=== PATIENT | female | born 1935 | race Caucasian/White ===

== ENCOUNTER → 2016-09-19 | Outpatient (CLI) | payer MEDICARE, OTHER ==
[~2016-09-19] MED LIST: ATOR40TA PO; CALC-793 PO; CARV3.12 PO; CHOL200035 PO; CLOP75TA; FAMO-119 PO; GLUC1TAB29 PO; GRAP50CA5 PO; METO-352 PO; MULT1TAB5 PO; OMEG-12 PO; ONDA8TAB6 PO; PRAV20TA3 PO; TRAM50TA2 PO; [UNRECOGNIZED DRUG - CODE] PO
--- NOTE | 2016-09-22 18:50 | Diagnostic Imaging Report ---
Bilateral screening mammogram 2D views with tomosynthesis The current study was also evaluated with a Computer Aided Detection (CAD) system. INDICATION: Screening. No current complaints stated on the questionnaire. COMPARISON: 08/14/2015. FINDINGS: The breasts are composed of heterogeneously dense parenchyma which may decrease mammographic sensitivity. There are benign-appearing calcifications. Allowing for technique and positional differences, no suspicious change is seen. IMPRESSION: Dense breasts with no definite change. ACR BI-RADS Category 2: Benign findings. Result letter will be mailed to the patient. Note: At least 10% of breast cancer is not imaged by mammography. Dictated by: Dictated on workstation # [id number]
== END ==
LOC: RAD 14:56
PROVIDERS: ATTEND Nurse Practitioner Family
DX: Z12.31 Encounter for screening mammogram for malignant neoplasm of breast (principal)
CPT/HCPCS: 77067

== ENCOUNTER 2016-10-18 12:44 | Emergency (ER) | payer MEDICARE, OTHER ==
[~2016-10-18] VITALS: Ht 157.5 cm; Wt 62.1 kg
--- NOTE | 2016-10-18 13:37 | ED Fall/Injury ---
General Chief Complaint: Trauma-Non Activation Stated Complaint: FALL Nursing Triage Note: Patient here with fall early this am around 0030. She reports falling backwards over a clothes basket. Patient c/o bilat hip pain. Source: patient, family Exam Limitations: no limitations History of Present Illness Time seen by provider: 13:25 Initial Comments Here with report of falling backwards last night in a mechanical fall in which she may be tripped over a clothes basket. She landed on her bottom and then fell backwards. She states she may have glanced her head a little bit on the door but it did not hurt. She is not on anticoagulants. She did not get knocked out. Main complaint of pain to the low bottom area at the area of the ischium and over the area of the coccyx. Occurred: yesterday Severity: mild Injuries/Pain Location: pelvis Context: tripped Loss of Consciousness: no loss of consciousness Associated Symptoms (Fall): No Abdominal Pain, No Confusion, No Dizziness, No Muscle Spasms, No Neck Pain, No Shortness of Air Allergies and Home Medications Allergies Coded Allergies: quinine (Verified Allergy, Unknown, 08/19/07) Home Medications Cholecalciferol (Vitamin D3) 2,000 Unit Capsule, 2,000 UNIT PO DAILY, (Reported) Clopidogrel Bisulfate 75 Mg Tablet, (Reported) Famotidine 20 Mg Tablet, 20 MG PO BID, #30 Ref 1 Prescribed by: LJ QUEZADA on 10/07/15 1756 Metoprolol Succinate 50 Mg Tab.er.24h, Unknown Dose PO DAILY, (Reported) Multiv,Ca,Iron,Min/Fa/Phytoste 1 Each Tablet, 1 EACH PO PER PACKAGE INTRUC, ( Reported) [place]-3/Dha/Epa/Fish Oil 1 Each Capsule.dr, 1 EACH PO TID, (Reported) Pravastatin Sodium 20 Mg Tablet, Unknown Dose PO, (Reported) Ramipril 1.25 Mg Capsule, 1.25 MG PO, (Reported) Tramadol HCl 50 Mg Tablet, 50 MG PO Q6H PRN for PAIN, #20 Prescribed by: MAUDE REDDY on 01/04/16 1607 Constitutional: see HPI, No chills, No fever Respiratory: no symptoms reported, cough Cardiovascular: no symptoms reported Gastrointestinal: no symptoms reported Musculoskeletal: see HPI, joint swelling, muscle pain Past Gjlayjj-Klmlyc-Btfjqz Hx Patient Social History Alcohol Use: Denies Use Recreational Drug Use: No Smoking Status: Never a Smoker Recent Foreign Travel: No Contact w/Someone Who Travel: No Recent Infectious Disease Expo: No Recent Hopitalizations: No Surgeries HX Surgeries: Yes Surgeries: Adenoidectomy, CABG, Tonsillectomy Respiratory Hx Respiratory Disorders: No Cardiovascular Hx Cardiac Disorders: Yes Cardiac Disorders: Coronary Artery Disease, Hypertension Neurological Hx Neurological Disorders: No Reproductive System Hx Reproductive Disorders: No Genitourinary Hx Genitourinary Disorders: No Gastrointestinal Hx Gastrointestinal Disorders: No Musculoskeletal Hx Musculoskeletal Disorders: No Endocrine Hx Endocrine Disorders: No HEENT HX ENT Disorders: No Cancer Hx Cancer: No Psychosocial Hx Psychiatric Problems: No Integumentary HX Skin/Integumentary Disorder: No Blood Transfusions Hx Blood Disorders: No Adverse Reaction to a Blood Tr: No Reviewed Nursing Assessment Reviewed/Agree w Nursing PMH: Yes Family Medical History Significant Family History: No Pertinent Family Hx Physical Exam Vital Signs Vital Sign - Last 12Hours 10/18/16 12:58 Temp 98.2 Pulse 77 Resp 18 B/P (MAP) 178/80 Pulse Ox 98 O2 Delivery Room Air Capillary Refill : Less Than 3 Seconds General Appearance: WD/WN, no apparent distress Cardiovascular: regular rate, rhythm, no murmur Respiratory: lungs clear, normal breath sounds Extremities: normal range of motion, pelvis stable, other (tender at the area of the low pelvis centrally over the sacrum and coccyx area. Able to stand and walk without difficulty. Pain with transition from sitting to standing.) Progress/Results/Core Measures Results/Orders My Orders Orders - MAUDE REDDY MD Pelvis (10/18/16 13:24) Sacrum And Coccyx (10/18/16 13:24) Vital Signs/I&O Vital Sign - Last 12Hours 10/18/16 12:58 Temp 98.2 Pulse 77 Resp 18 B/P (MAP) 178/80 Pulse Ox 98 O2 Delivery Room Air Blood Pressure Mean: 112 Progress Note : Progress Note Seen and evaluated. X-ray of pelvis, sacrum and coccyx. Monitor patient. No acute fracture. Discharged home with return precautions. Patient verbalize understanding instructions and agreement with plan. Diagnostic Imaging Diagonstic Imaging: Xray Plain Films/CT/US/NM/MRI: pelvis Comments VIA [facility]. [place], [place] NAME: ALEC RUIZ [facility] REC#: [id number] PT STATUS: REG ER : 1935 PHYSICIAN: MAUDE REDDY MD ADMIT DATE: 10/18/16/ER Draft Date of Exam:10/18/16 PELVIS INDICATION: Fall, hip and pelvic pain. COMPARISON: 01/04/16. FINDINGS: Single view of the pelvis demonstrates chronic healed fracture of the inferior and superior pubic ramus on the left. No acute fracture is seen. Hips are intact. SI joints are normal. IMPRESSION: No acute fracture. Dictated on workstation # [id number] Dict: 10/18/16 1405 Trans: 10/18/16 1409 [id number] Interpreted by: ANNAMARIE MCDANIEL Electronically signed by: Niarosanne Imaging: Xray Plain Films/CT/US/NM/MRI: other (sacrum and coccyx) Comments [facility]IA [place], [place] [facility] [id number] PT STATUS: REG ER : 1935 PHYSICIAN: MAUDE REDDY MD ADMIT DATE: 10/18/16/ER Draft Date of Exam:10/18/16 SACRUM AND COCCYX INDICATION: Fall FINDINGS: 3 views of the sacrum and coccyx demonstrate healed inferior and superior pubic ramus fractures on the left. There is some anterolisthesis of L5 on S1 due to degenerative facet joints. There is no acute fracture or malalignment of the sacrum and coccyx. IMPRESSION: No acute fracture identified. Dictated on workstation # [id number] Dict: 10/18/16 1405 Trans: 10/18/16 1409 [facility] [id number] Interpreted by: ANNAMARIE MCDANIEL Electronically signed by: Departure Impression Impression: Primary Impression: Contusion of buttock Qualified Codes: S30.0XXA - Contusion of lower back and pelvis, initial encounter Disposition: 01 HOME, SELF-CARE Condition: Improved Departure-Patient Inst. Decision time for Depature: 14:19 Referrals: ZHAO FIGUEROA MD (PCP/Family) Primary Care Physician Patient Instructions: Contusion (DC) Add. Discharge Instructions: All discharge instructions reviewed with patient and/or family. Voiced understanding. Take medications as previously prescribed. You may take Tylenol as needed for pain control. He may use ice packs to affected area as needed. Follow-up with your Dr. in a few days for recheck as needed. Return for worse pain, swelling, weakness, problems walking or going to the bathroom or other concerns as needed. MAUDE REDDY MD Oct 18, 2016 13:37
--- NOTE | 2016-10-18 14:09 | Diagnostic Imaging Report ---
INDICATION: Fall, hip and pelvic pain. COMPARISON: 01/04/16. FINDINGS: Single view of the pelvis demonstrates chronic healed fracture of the inferior and superior pubic ramus on the left. No acute fracture is seen. Hips are intact. SI joints are normal. IMPRESSION: No acute fracture. Dictated by: Dictated on workstation # [id number]
--- NOTE | 2016-10-18 14:10 | Diagnostic Imaging Report ---
INDICATION: Fall FINDINGS: 3 views of the sacrum and coccyx demonstrate healed inferior and superior pubic ramus fractures on the left. There is some anterolisthesis of L5 on S1 due to degenerative facet joints. There is no acute fracture or malalignment of the sacrum and coccyx. IMPRESSION: No acute fracture identified. Dictated by: Dictated on workstation # [id number]
[2016-10-18 14:23] VITALS: BP 147/75
== END 2016-10-18 14:23 | disposition home or self-care (01) ==
LOC: EDUNIT# 12:44 → ER 12:45
DX: S30.0XXA Contusion of lower back and pelvis, initial encounter (principal); I25.10 Atherosclerotic heart disease of native coronary artery without angina pectoris; I10 Essential (primary) hypertension; Z90.89 Acquired absence of other organs; Z95.1 Presence of aortocoronary bypass graft; W18.30XA Fall on same level, unspecified, initial encounter
CPT/HCPCS: 72170; 72220; 99281

== ENCOUNTER → 2017-11-18 | Outpatient (CLI) | payer MEDICARE, OTHER ==
--- NOTE | 2017-11-18 18:43 | Diagnostic Imaging Report ---
INDICATION: Routine screening. COMPARISON: Comparison is made with prior mammogram from 09/19/2016 and 08/14/2015. TECHNIQUE: 2D and 3D bilateral screening mammography was performed with computer-aided detection (CAD) system. FINDINGS: Both breasts are heterogeneously dense, limiting the sensitivity of mammography. There are occasional benign calcifications bilaterally. No mass or malignant appearing microcalcifications are seen. The axillae are unremarkable. IMPRESSION: No mammographic features suspicious for malignancy are identified. ACR BI-RADS Category 2: Benign findings. Result letter will be mailed to the patient. Note: At least 10% of breast cancer is not imaged by mammography. Dictated by: Dictated on workstation # [id number]
== END ==
LOC: RAD 11:33
PROVIDERS: ATTEND Family Medicine
DX: Z12.31 Encounter for screening mammogram for malignant neoplasm of breast (principal)
CPT/HCPCS: 77067

== ENCOUNTER → 2018-09-02 | Outpatient (CLI) | payer MEDICARE, OTHER ==
--- NOTE | 2018-09-02 11:47 | Diagnostic Imaging Report ---
CLINICAL INDICATION: Patient states her lower back really started to hurt in the evening. Patient complained that her legs and knee were hurting. Patient has history of break in pelvic bone in 2013 from a fall. EXAM: X-ray of the lumbar spine, Two views. COMPARISON: X-ray of the lumbar spine dated 11/22/2008. FINDINGS: There is no acute lumbar spine fracture. There are small lumbar spine degenerative spurs seen which is not significantly changed in the interim. There is slight progression of facet arthropathy of the L4-5 and L5-S1 levels. Stable moderate loss of intervertebral disc height at the L5-S1 level. There is stable levorotoscoliosis of the lumbar spine with apex at the L3-L4 intervertebral level. Phleboliths are noted in the pelvis. Sacroiliac joints show no significant abnormality. There is interval bony thickening and sclerosis of the left hemipelvis which may be related to patient's history of fracture. IMPRESSION: 1: There is no acute lumbar spine fracture or dislocation. 2: There is slight progression of lumbar spine degenerative disease. 3: Stable levorotoscoliosis of the lumbar spine. Dictated by: Dictated on workstation # [id number]
== END ==
LOC: RAD 10:11
PROVIDERS: ATTEND Nurse Practitioner Family
DX: M41.86 Other forms of scoliosis, lumbar region (principal); Z87.81 Personal history of (healed) traumatic fracture
CPT/HCPCS: 72100

== ENCOUNTER 2018-09-16 23:28 | Emergency (ER) | payer MEDICARE, OTHER ==
[~2018-09-16] VITALS: Ht 157.5 cm; Wt 59.0 kg
[2018-09-16] MEDS ORDERED: ONDA4TAB10 (23:38)
[2018-09-16] MEDS ORDERED: lisINopril 10 MG (PRINIVIL) TABLET PO ONE (23:45)
[2018-09-16] MEDS ORDERED: ONDANSETRON 4 MG/2 ML (SDV) Z0FRAN IVP ONE (23:45)
[2018-09-16 23:59] LABS: BASOPHILS % (AUTO) 1 % (0-10); EOSINOPHILS # (AUTO) 0.1 10^3/uL (0.0-0.3); EOSINOPHILS % (AUTO) 2 % (0-10); HEMATOCRIT 36 % (35-52); HEMOGLOBIN 11.9 G/DL (11.5-16.0); LYMPHOCYTES # (AUTO) 1.7 X 10^3 (1.0-4.0); LYMPHOCYTES % (AUTO) 34 % (12-44); MEAN CORPUSCULAR HEMOGLOBIN 31 PG (25-34); MEAN CORPUSCULAR HGB CONC 33 G/DL (32-36); MEAN CORPUSCULAR VOLUME 92 FL (80-99); MEAN PLATELET VOLUME 10.3 FL (7.4-10.4); MONOCYTES # (AUTO) 0.7 X 10^3 (0.0-1.0); MONOCYTES % (AUTO) 15 % (0-12); NEUTROPHILS # (AUTO) 2.4 X 10^3 (1.8-7.8); NEUTROPHILS % (AUTO) 49 % (42-75); PLATELET COUNT 204 10^3/uL (130-400); RED CELL DISTRIBUTION WIDTH 12.5 % (10.0-14.5)
[2018-09-17 00:03] LABS: BILIRUBIN,URINE NEGATIVE (NEGATIVE); CLARITY,URINE CLEAR; COLOR,URINE YELLOW; GLUCOSE, URINE (UA) NEGATIVE (NEGATIVE); KETONES,URINE NEGATIVE (NEGATIVE); LEUKOCYTE ESTERASE ,URINE 2+ (NEGATIVE); NITRITE,URINE NEGATIVE (NEGATIVE); PH,URINE 7 (5-9); PROTEIN,URINE NEGATIVE (NEGATIVE); UROBILINOGEN,URINE NORMAL (NORMAL)
[2018-09-17 00:10] LABS: BACTERIA,URINE FEW /HPF
[2018-09-17 00:16] LABS: ALANINE AMINOTRANSFERASE 17 U/L (0-55); ALBUMIN 4.2 GM/DL (3.2-4.5); ALKALINE PHOSPHATASE 49 U/L (40-136); BILIRUBIN,TOTAL 0.3 MG/DL (0.1-1.0); BUN/CREATININE RATIO 15; CALCIUM 9.7 MG/DL (8.5-10.1); CARBON DIOXIDE 22 MMOL/L (21-32); CHLORIDE 102 MMOL/L (98-107); CREATININE SERUM 0.82 MG/DL (0.60-1.30); GFR ESTIMATED > 60; GLUCOSE 118 MG/DL (70-105); MAGNESIUM 2.4 MG/DL (1.8-2.4); POTASSIUM 3.6 MMOL/L (3.6-5.0); SODIUM 137 MMOL/L (135-145); TOTAL PROTEIN 7.2 GM/DL (6.4-8.2)
[2018-09-17] MEDS ORDERED: NS IV 500 ML 500 ML IV ONE (00:17)
--- NOTE | 2018-09-17 00:17 | ED Neurological Problem ---
General Chief Complaint: Dizziness/Syncope Stated Complaint: HYPERTENSION Nursing Triage Note: DIZZINESS, NEAR SYNCOPE, N/V, HTN. Nursing Sepsis Screen: No Definite Risk Source: patient, family, EMS Exam Limitations: no limitations History of Present Illness Date Seen by Provider: Sep 16, 2018 Time Seen by Provider: 23:28 Initial Comments Patient presents to ER by EMS with chief complaint for the past couple days sh mau's had some nausea and vomiting as well as dizziness which she describes as feeling the room spinning around her. Is worse with her bed. She has not brought it up to care doctor yet. She did attend physical therapy for back pain and they did some maneuvers holding her hips down and twisting her head from left to right and said that they did not think that it was caused by vertigo from her in her ear. She is not very clear on this point however. She has not tried meclizine. She did get some Zofran today from Dr. Figueroa's office by phone and tried that after the nausea pretty much resolved and has not come back. She has a history of CABG but no history of stroke. No loss of consciousness or syncope. She does not take a beta victoriano although she used to. She only takes Ramipril 5 mg for blood pressure. She says she has not taken in the last couple days because of the vomiting. She feels dehydrated. Allergies and Home Medications Allergies Coded Allergies: quinine (Verified Allergy, Unknown, 08/19/07) Home Medications Cholecalciferol (Vitamin D3) 2,000 Unit Capsule, 2,000 UNIT PO DAILY, (Reported) Multiv,Ca,Iron,Min/Fa/Phytoste 1 Each Tablet, 1 EACH PO PER PACKAGE INTRUC, (Reported) [place]-3/Dha/Epa/Fish Oil 1 Each Capsule.dr, 1 EACH PO TID, (Reported) Patient Home Medication List Home Medication List Reviewed: Yes Review of Systems Review of Systems Constitutional: No chills, No diaphoresis Eyes: Denies Blindness, Denies Blurred Vision, Denies Drainage Ears, Nose, Mouth, Throat: denies ear pain, denies ear discharge, denies nose pain, denies nose discharge Respiratory: No cough, No phlegm, No short of breath Cardiovascular: No chest pain, No edema Gastrointestinal: No abdominal pain, No nausea, No vomiting Genitourinary: No discharge, No dysuria : No Musculoskeletal: No back pain, No joint pain Past Tlqpzbf-Byrhds-Jxjsng Hx Patient Social History Alcohol Use: Rarely Uses Recreational Drug Use: No Smoking Status: Never a Smoker 2nd Hand Smoke Exposure: No Recent Foreign Travel: No Contact w/Someone Who Travel: No Recent Infectious Disease Expo: No Recent Hopitalizations: No Immunizations Up To Date Tetanus Booster (TDap): Unknown Seasonal Allergies Seasonal Allergies: No Past Medical History Surgeries: Yes (HEART CATH, CABG, CARPAL TUNNEL BILAT, TONSILLECTOMY, 4 NATURAL CHILDBIRTH) Adenoidectomy, CABG, Tonsillectomy Respiratory: No Cardiac: Yes Coronary Artery Disease, Hypertension Neurological: No : No Reproductive Disorders: No [employer] History: Menopausal Genitourinary: No Gastrointestinal: No Musculoskeletal: No Endocrine: No HEENT: No Cancer: No Psychosocial: No Integumentary: No Blood Disorders: No Adverse Reaction/Blood Tranf: No Family Medical History No Pertinent Family Hx Physical Exam Vital Signs Vital Signs - First Documented 09/16/18 23:28 Temp 98.9 Pulse 60 Resp 20 B/P (MAP) 192/86 (121) Pulse Ox 100 O2 Delivery Room Air Capillary Refill : Less Than 3 Seconds Height, Weight, BMI Height: 5'2" Weight: 130lbs. 0.0oz. 58.075010ie; 24.9 BMI Method:Stated General Appearance: WD/WN, no apparent distress HEENT: PERRL/EOMI, normal ENT inspection, TMs normal, pharynx normal Neck: non-tender, full range of motion, supple, normal inspection Respiratory: chest non-tender, lungs clear, normal breath sounds, no respiratory distress, no accessory muscle use Cardiovascular: normal peripheral pulses, regular rate, rhythm, other (trace) Peripheral Pulses: 1+ Dorsalis Pedis (R), 1+ Left Dors-Pedis (L) Gastrointestinal: normal bowel sounds, non tender, soft Extremities: non-tender, normal inspection, normal capillary refill Neurologic/Psychiatric: manager film II-XII nml as tested, no motor/sensory deficits, alert, normal mood/affect, oriented x 3, other (NIH is 0. Motor strength is 5 out of 5 all 4 extremities. Head impulse, nystagmus and test of skew were all negative.) Crainal Nerves: normal hearing, normal speech, PERRL Coordination/Gait: normal finger to nose Motor/Sensory: no motor deficit, no sensory deficit, no pronator drift Skin: normal color, warm/dry Stroke NIH Stroke Scale Assessment Level of Consciousness: 0=Alert (0), Level of Consciousness-Questions: 0=Answers both month/age (0), LOC Commands: 0=Performs both tasks (0), Visual Souza: 0=No visual loss (0), Facial Movement (Facial Paresis): 0=Normal symmetrical mnt (0), Motor Function-Arms Right: 0=No drift (0), Motor Function-Arms Left: 0=No drift (0), Motor Function-Legs Right: 0=No drift (0), Motor Function-Legs Left: 0=No drift (0), Limb Ataxia: 0=Absent (0), Sensory: 0=Normal:no loss (0), Best Language: 0=No aphasia (0), Dysarthria: 0=Normal (0), Extinction & Inattention: 0=No abnormality (0), Total: 0 IV - TPa Received IV - TPa Procedure Performed?: No Progress/Results/Core Measures Results/Orders Lab Results Laboratory Tests Test 09/16/18 23:30 09/16/18 23:55 Range/Units White Blood Count 5.0 4.3-11.0 10^3/uL Red Blood Count 3.89 L 4.35-5.85 10^6/uL Hemoglobin 11.9 11.5-16.0 G/DL Hematocrit 36 35-52 % Mean Corpuscular Volume 92 80-99 FL Mean Corpuscular Hemoglobin 31 25-34 PG Mean Corpuscular Hemoglobin Concent 33 32-36 G/DL Red Cell Distribution Width 12.5 10.0-14.5 % Platelet Count 204 130-400 10^3/uL Mean Platelet Volume 10.3 7.4-10.4 FL Neutrophils (%) (Auto) 49 42-75 % Lymphocytes (%) (Auto) 34 12-44 % Monocytes (%) (Auto) 15 H 0-12 % Eosinophils (%) (Auto) 2 0-10 % Basophils (%) (Auto) 1 0-10 % Neutrophils # (Auto) 2.4 1.8-7.8 X 10^3 Lymphocytes # (Auto) 1.7 1.0-4.0 X 10^3 Monocytes # (Auto) 0.7 0.0-1.0 X 10^3 Eosinophils # (Auto) 0.1 0.0-0.3 10^3/uL Basophils # (Auto) 0.0 0.0-0.1 10^3/uL Sodium Level 137 135-145 MMOL/L Potassium Level 3.6 3.6-5.0 MMOL/L Chloride Level 102 98-107 MMOL/L Carbon Dioxide Level 22 21-32 MMOL/L Anion Gap 13 5-14 MMOL/L Blood Urea Nitrogen 12 7-18 MG/DL Creatinine 0.82 0.60-1.30 MG/DL Estimat Glomerular Filtration Rate > 60 BUN/Creatinine Ratio 15 Glucose Level 118 H 70-105 MG/DL Calcium Level 9.7 8.5-10.1 MG/DL Corrected Calcium 9.5 8.5-10.1 MG/DL Magnesium Level 2.4 1.8-2.4 MG/DL Total Bilirubin 0.3 0.1-1.0 MG/DL Aspartate Amino Transf (AST/SGOT) 21 5-34 U/L Alanine Aminotransferase (ALT/SGPT) 17 0-55 U/L Alkaline Phosphatase 49 40-136 U/L Troponin I < 0.028 <0.028 NG/ML C-Reactive Protein High Sensitivity 0.09 0.00-0.50 MG/DL B-Type Natriuretic Peptide 55.9 <100.0 PG/ML Total Protein 7.2 6.4-8.2 GM/DL Albumin 4.2 3.2-4.5 GM/DL Urine Color YELLOW Urine Clarity CLEAR Urine pH 7 5-9 Urine Specific Hazel 1.010 L 1.016-1.022 Urine Protein NEGATIVE NEGATIVE Urine Glucose (UA) NEGATIVE NEGATIVE Urine Ketones NEGATIVE NEGATIVE Urine Nitrite NEGATIVE NEGATIVE Urine Bilirubin NEGATIVE NEGATIVE Urine Urobilinogen NORMAL NORMAL MG/DL Urine Leukocyte Esterase 2+ H NEGATIVE Urine RBC (Auto) 3+ H NEGATIVE Urine RBC 5-10 H /HPF Urine WBC 5-10 H /HPF Urine Squamous Epithelial Cells 2-5 /HPF Urine Crystals NONE /LPF Urine Bacteria FEW H /HPF Urine Casts NONE /LPF Urine Mucus NEGATIVE /LPF Urine Culture Indicated YES My Orders Orders - GRUPO LEGER BNP (09/16/18 23:41) Cbc With Automated Diff (09/16/18 23:41) Comprehensive Metabolic Panel (09/16/18 23:41) Hs C Reactive Protein (09/16/18 23:41) Magnesium (09/16/18 23:41) Troponin I (09/16/18 23:41) Ua Culture If Indicated (09/16/18 23:41) Ondansetron Injection (Zofran Injectio (09/16/18 23:45) Lisinopril Tablet (Zestril Tablet) (09/16/18 23:45) Ct Head Wo (09/17/18 00:01) Chest 1 View, Ap/Pa Only (09/17/18 00:01) Urine Culture (09/16/18 23:55) Ekg Tracing (09/17/18 00:12) Continuous Ekg Monitoring (09/17/18 00:12) Ed Iv/Invasive Line Start (09/17/18 00:17) Ns Iv 500 Ml (Sodium Chloride 0.9%) (09/17/18 00:17) Ceftriaxone For Iv Use (Rocephin For I (09/17/18 01:00) Medications Given in ED Current Medications Medications Dose Ordered Sig/Sowmya Route Start Time Stop Time Status Last Admin Dose Admin Ceftriaxone Sodium 1000 mg/ Sterile Water 10 ml @ 200 mls/hr ONCE ONCE IV 09/17/18 01:00 09/17/18 01:02 DC 09/17/18 00:57 200 MLS/HR Lisinopril 10 mg ONCE ONCE PO 09/16/18 23:45 09/16/18 23:52 DC 09/16/18 23:54 10 MG Ondansetron HCl 4 mg ONCE ONCE IVP 09/16/18 23:45 09/16/18 23:52 DC 09/16/18 23:54 4 MG Sodium Chloride 500 ml @ 0 mls/hr Q0M ONCE IV 09/17/18 00:17 09/17/18 00:18 DC 09/17/18 00:28 0 MLS/HR Vital Signs/I&O 09/16/18 23:28 Temp 98.9 Pulse 60 Resp 20 B/P (MAP) 192/86 (121) Pulse Ox 100 O2 Delivery Room Air Blood Pressure Mean: 121 Progress Progress Note : Time: 00:19 Progress Note No focal neural deficits. Her dizziness does seem consistent with vertigo. Hints negative which would make a central cause less likely. The Michael-Hallpike maneuver did not elicit her symptoms. I'm not sure what tests were done by physical therapy or what they would exclude. The patient does not have any symptoms at this moment but she says a mild amount of nausea is coming back after that [place]- Hallpike so we will give her some Zofran. She took her Zofran at home at 1900. We'll obtain a CT to rule out tumor or bleed or overt infarction. Check for labs chest x-ray looking for signs of infection that might be worsening her symptoms. No significant otitis media with effusion on exam. The patient's vomiting or blood pressure medicine and her blood pressure is elevated. Return to give her some lisinopril 10 mg as this is been probably going on for couple days and give her some fluids as she does clinically appear to be dry. If the CT is negative and we can get her comfortable may be reasonable for her to do an MRI ou tpatient. Initial ECG Impression Date: Sep 17, 2018 Initial ECG Impression Time: 00:24 Initial ECG Rate: 59 Initial ECG Rhythm: Normal Sinus Initial ECG Intervals: Normal Initial ECG Impression: Normal Comment No clinically significant ST elevation or depression. Diagnostic Imaging Diagonstic Imaging: Xray Plain Films/CT/US/NM/MRI: chest (1v) Comments No acute cardiopulmonary process noted. Reviewed: Reviewed by Me Diagonstic Imaging: CT (noncontrast) Plain Films/CT/US/NM/MRI: head Comments No intracranial hemorrhage, mass effect, tumor, midline shift or calvarial fracture. Reviewed: [facility]ed [facility], Reviewed by Me Departure Impression Primary Impression: Vertigo Additional Impressions: UTI (urinary tract infection) Qualified Codes: N30.01 - Acute cystitis with hematuria Nausea & vomiting Qualified Codes: R11.2 - Nausea with vomiting, unspecified Disposition: HOME, SELF-CARE Condition: Stable Departure-Patient Inst. Decision time for Depature: 00:35 Referrals: ZHAO FIGUEROA MD (PCP/Family) Primary Care Physician Patient Instructions: Kidney Infection (DC), Vertigo (a Type of Dizziness) (DC) Add. Discharge Instructions: All discharge instructions reviewed with patient and/or family. Voiced understanding. Scripts Cephalexin (Cephalexin) 500 Mg Tablet 500 MG PO BID for 7 Days, #14 TAB 0 Refills Prov: GRUPO LEGER 09/17/18 Copy Copies To 1: ZHAO FIGUEROA MD, TITUS J Sep 17, 2018 00:17
--- NOTE | 2018-09-17 00:55 | NUR ---
pt reports wish to go home tonight. erp notified.
[2018-09-17] MEDS ORDERED: cefTRIAXone FOR IV USE 1,000 MG in WATER (STERILE) FOR INJECTION 10 ML IV ONE (01:00)
[2018-09-17] MEDS ORDERED: CEPH500T PO (01:18)
[2018-09-17 01:20] VITALS: BP 152/65
--- NOTE | 2018-09-17 07:26 | Diagnostic Imaging Report ---
PROCEDURE: CT head without contrast. TECHNIQUE: Multiple contiguous axial images were obtained through the brain without the use of intravenous contrast. Auto Exposure Controls were utilized during the CT exam to meet ALARA standards for radiation dose reduction. INDICATION: Syncope, dizziness. Comparison: 01/04/2016 Findings: No hyperdense hemorrhage or space-occupying mass. No hydrocephalus or midline shift. Symmetric prominence of the ventricles and cortical sulci is compatible with age-appropriate atrophy. No isolated lobar atrophy. No territorial loss of [place]-white matter differentiation to indicate acute/subacute infarct. The mastoid air cells are clear. Paranasal sinuses are normal. No focal osseous abnormality of the calvarium. Impression: No acute intracranial process. Findings are in agreement with the preliminary report. Dictated by: Dictated on workstation # [id number]
--- NOTE | 2018-09-17 07:26 | Diagnostic Imaging Report ---
INDICATION: Syncope. COMPARISON: 10/07/2015. FINDINGS: Heart is normal in size and status post CABG. Visualized lungs are clear. No pleural effusion or pneumothorax. Posterior lower lobes are poorly evaluated by portable radiography. IMPRESSION: No acute process by portable radiography. Dictated by: Dictated on workstation # [id number]
== END 2018-09-17 01:27 | disposition home or self-care (01) ==
LOC: EDUNIT# 23:29 → ER 23:30
DX: N39.0 Urinary tract infection, site not specified (principal); R11.2 Nausea with vomiting, unspecified; R42 Dizziness and giddiness; I10 Essential (primary) hypertension; I25.10 Atherosclerotic heart disease of native coronary artery without angina pectoris; Z95.1 Presence of aortocoronary bypass graft; Z88.8 Allergy status to other drugs, medicaments and biological substances; Z90.89 Acquired absence of other organs
CPT/HCPCS: 36415; 70450; 71045; 80053; 81000; 83735; 83880; 84484; 85025; 86141; 87088; 93005; 93041; 96374; 96375

== ENCOUNTER → 2018-12-07 | Outpatient (CLI) | payer MEDICARE, OTHER ==
[~2018-12-07] MED LIST changes: +CEPH500T PO; +ONDA4TAB10
--- NOTE | 2018-12-07 20:46 | Diagnostic Imaging Report ---
EXAM: Digital mammogram bilateral screening COMPARISON: This study was compared to the prior exams of 11/18/2017, 07/01/2017, 09/19/2016 and 08/14/2015. There are no current complaints. The current study was also evaluated with a Computer Aided Detection (CAD) system. FINDINGS: The fibroglandular tissue in both breasts is heterogeneously dense. This does limit the sensitivity of this exam. Overall, there does not appear to have been any significant change when compared to the prior study. No primary or secondary sign of malignancy is noted. IMPRESSION: There is no radiographic evidence for malignancy. ACR BI-RADS Category 1: Negative. Result letter will be mailed to the patient. Note: At least 10% of breast cancer is not imaged by mammography. Dictated by: Dictated on workstation # [id number]
== END ==
LOC: RAD 13:12
PROVIDERS: ATTEND Nurse Practitioner Family
DX: Z12.31 Encounter for screening mammogram for malignant neoplasm of breast (principal)
CPT/HCPCS: 77067

== ENCOUNTER → 2020-02-14 | Outpatient (CLI) | payer MEDICARE, OTHER ==
[~2020-02-14] MED LIST changes: +ONDA-105; -ONDA4TAB10; -TRAM50TA2 PO; +TRM50T PO
--- NOTE | 2020-02-14 12:57 | Diagnostic Imaging Report ---
INDICATION: Routine screening. COMPARISON: 12/07/2018 and 11/18/2017. TECHNIQUE: 2D and 3D bilateral screening mammography was performed with CAD. FINDINGS: Both breasts are heterogeneously dense, limiting the sensitivity of mammography. The parenchymal pattern is stable. No mass or malignant appearing microcalcifications are seen. The axillae are unremarkable. IMPRESSION: No mammographic features suspicious for malignancy are identified. ACR BI-RADS Category 1: Negative. Result letter will be mailed to the patient. Note: At least 10% of breast cancer is not imaged by mammography. Dictated by: Dictated on workstation # [id number]
--- NOTE | 2020-02-14 13:12 | Diagnostic Imaging Report ---
INDICATION: Postmenopausal. COMPARISON: 12/06/2015 FINDINGS: The bone mineral density of the spine is -2.3. On the prior exam, the T score is -1.3. While the total T score indicates severe osteopenia it should be noted that the T score for L2 is -2.7 and for L3 is -2.6. These values do indicate osteoporosis. The total T score for the left hip is -0.2 and for the right hip is 0.1. On the prior exam the respective T-scores were 0.1 and 0.5. The T score for the left femoral neck is -1.4 and for the right femoral neck -0.8. On the prior exam the respective T-scores were -1.2 and -1.0. AP Spine L1-L4: [BMD (g/cm2): 0.920] [T-Score: -2.3] [Z-Score: -0.2] [BMD Previous: 1.044] [BMD % Change: -11.9] LT Hip Neck: [BMD (g/cm2): 0.848] [T-Score: -1.4] [Z-Score: 1.1] LT Hip Total: [BMD (g/cm2):0.981] [T-Score:-0.2] [Z-Score: 2.1] [BMD Previous: 1.017] [BMD % Change: -3.5] RT Hip Neck: [BMD (g/cm2):0.921] [T-Score:-0.8] [Z-Score:1.6] RT Hip Total: [BMD (g/cm2):1.024] [T-score:0.1] [Z-Score:2.5] [BMD Previous:1.068] [BMD % Change:-4.1] *Indicates significant change from prior examination based on 95% confidence level. World Health Organization criteria for BMD interpretation classify patients as Normal (T-score at or above -1.0), Osteopenic (T-score between -1.0 and -2.5) or Osteoporotic (T-score at or below -2.5). LIMITATIONS AND MODIFICATION: None. FRACTURE RISK (FRAX SCORE): The ten year probability of (%): Major Osteoporotic Fracture: [18.2] Hip Fracture: [4.3] IMPRESSION: 1. The bone mineral density of the spine has decreased by approximately 12% since the prior exam. The T score value now indicates severe osteopenia. There is also osteoporosis of L1 and L2. 2. There has been a slight decrease in the bone mineral density of each hip. The T score value still falls within normal limits. 3. There has been a slight decrease in the bone mineral density of the left femoral neck. This value still falls within the range of osteopenia. Conversely there has been a slight increase in the bone mineral density of the right femoral neck and this value is within normal limits. 4. See below National Osteoporosis Foundation guidelines on when to potentially initiate pharmacologic therapy. Based on the National Osteoporosis Foundation Guidelines, pharmacologic treatment should be initiated in any of the following, unless clinical conditions suggest otherwise: * Any patient with prior fragility fracture of the hip or vertebrae. A spine fracture indicates 5X risk for subsequent spine fracture and 2X risk for subsequent hip fracture. * Osteoporosis (T-score <-2.5). * Postmenopausal women and men age 50 and older with low bone mass/osteopenia (T-score between -1.0 and -2.5) by DXA and 10-year major osteoporotic fracture greater than 20% or a 10-year probability of hip fracture greater than 3%. These fracture risks are supplied above in the FRAX score, if applicable. * Clinician judgement and/or patient preferences may indicate treatment for people with 10-year fracture probabilities above or below these levels. Dictated by: Dictated on workstation # [id number]
== END ==
LOC: RAD 09:58
PROVIDERS: ATTEND Family Medicine
DX: Z12.31 Encounter for screening mammogram for malignant neoplasm of breast (principal); Z78.0 Asymptomatic menopausal state
CPT/HCPCS: 77063; 77067; 77080

== ENCOUNTER 2020-03-23 13:07 | Outpatient (RCR) | payer MEDICARE, OTHER | END 2020-05-07 | disposition home or self-care (01) | PROVIDERS: ATTEND Nurse Practitioner Family | DX: M54.9 Dorsalgia, unspecified (principal); R26.9 Unspecified abnormalities of gait and mobility ==

== ENCOUNTER → 2020-06-22 | Outpatient (CLI) | payer MEDICARE, OTHER | LOC: CARD 13:02 | PROVIDERS: ATTEND Physician Assistant | DX: I11.9 Hypertensive heart disease without heart failure (principal); I34.0 Nonrheumatic mitral (valve) insufficiency | CPT/HCPCS: 93306 ==

== ENCOUNTER → 2020-07-30 | Outpatient (CLI) | payer MEDICARE, OTHER ==
[~2020-07-30] VITALS: Ht 157 cm; Wt 59.0 kg
[~2020-07-30] MED LIST changes: +REGADENOSON 0.4 MG/5 ML SYR (LEXISCAN) IV ONE
[2020-07-30] MEDS: CATHETER FLUSH 10 ML SYR IV PRN ×2 (07:34→09:20)
[2020-07-30 09:18] VITALS: BP 124/54
--- NOTE | 2020-07-30 12:02 | Cardiology Stress Test Report ---
Stress Test Report Date of Procedure/Referring: Date of Procedure: July 30, 2020 Ellie Landeros Admitting Physician Vicki Kim MD Indications: CAD Baseline Heart Rate: 49 Baseline Blood Pressure: Blood Pressure Systolic: 124 Blood Pressure Diastolic: 54 Baseline Vitals Vital Signs Date Time Temp Pulse Resp B/P (MAP) Pulse Ox O2 Delivery O2 Flow Rate FiO2 07/30/20 09:18 49 16 124/54 (77) 97 Room Air Baseline EKG: Baseline EKG: NSR Summary After explaining the procedure to the patient, she signed a consent and then brought to the stress nuclear laboratory. Patient received 0.4 mg Lexiscan for stress test, ECG, heart rate and blood pressure were monitored continuously. Resting and stress dose of radio tracer were injected, imaging was acquired and reviewed in short axis, horizontal long axis and vertical long axis views. TID: 1.02 SSS: 2 SDS: 0 EF: 53 1. Patient tolerated Lexiscan well 2. No significant ischemia or infarction on SPECT images 3. Normal left ventricular size, EF 53% THEODORE ZULUAGA MD July 30, 2020 12:02
== END ==
LOC: CARD 07:16
PROVIDERS: ATTEND Physician Assistant
DX: I25.10 Atherosclerotic heart disease of native coronary artery without angina pectoris (principal)
CPT/HCPCS: 78452; 93017; A9502

== ENCOUNTER → 2020-11-20 | Outpatient (CLI) | payer MEDICARE, OTHER ==
[~2020-11-20] MED LIST changes: -REGADENOSON 0.4 MG/5 ML SYR (LEXISCAN) IV ONE
--- NOTE | 2020-11-20 19:37 | Diagnostic Imaging Report ---
EXAMINATION: Lumbosacral spine 2 or 3 views HISTORY: Fall. Low back pain. COMPARISON: 09/02/2018. FINDINGS: There is no acute fracture or dislocation of the lumbar spine. There is left convexity curvature of the lumbar spine centered at the L3 level. Generalized osteopenia is seen. The vertebral body heights are well maintained. Degenerative changes are present in the lumbar spine with marginal osteophytes and facet hypertrophy. These are greatest at the L3-L4 level. There is calcified aortic atherosclerotic plaque. IMPRESSION: 1. No acute fracture or dislocation in the lumbar spine. 2. Left convexity curvature of the lumbar spine centered at the L3 level. This has progressed since the prior exam. 3. Degenerative changes in the lumbar spine, greatest at L3-L4. Dictated by: Dictated on workstation # [id number]
== END ==
LOC: RAD 16:45
PROVIDERS: ATTEND Family Medicine
DX: M47.816 Spondylosis without myelopathy or radiculopathy, lumbar region (principal); W19.XXXA Unspecified fall, initial encounter
CPT/HCPCS: 72100

== ENCOUNTER → 2020-12-05 | Outpatient (CLI) | payer MEDICARE, OTHER ==
[~2020-12-05] MED LIST changes: +DENOSUMAB 60 MG/1 ML (PROLIA) SQ SCH
[2020-12-05 13:15] VITALS: BP 126/68
== END ==
LOC: SDC 13:10
PROVIDERS: ATTEND Family Medicine
DX: M81.0 Age-related osteoporosis without current pathological fracture (principal)
CPT/HCPCS: 96372

== ENCOUNTER 2021-05-28 10:41 | Emergency (ER) | payer MEDICARE, OTHER ==
[~2021-05-28] VITALS: Ht 157 cm; Wt 54.0 kg
[~2021-05-28 10:41] MED LIST changes: -DENOSUMAB 60 MG/1 ML (PROLIA) SQ SCH
--- NOTE | 2021-05-28 10:59 | ED Trauma-Vehiclar ---
General Chief Complaint: Trauma-Non Activation Stated Complaint: FALL - BACK PAIN Nursing Triage Note: ARRIVED VIA WC TO ROOM 02 AFTER FALLING AT HOME WHILE REACHING FOR THE FRIDGE. COMPLAINS OF RIGHT UPPER BACK PAIN. DENIES HITTING HER HEAD ALTHOUGH HER STATES SHE DID. Time Seen by MD: 10:55 Source: patient Exam Limitations: no limitations History of Present Illness Date Seen by Provider: May 28, 2021 Time Seen by Provider: 10:57 Initial Comments To ER by private vehicle with reports of a fall at home. She was walking through the kitchen very quickly according to her when she fell against a cabinet striking the right side of her thoracic spine on the cabinet and then slid slowly down to the floor. She denies any buttock or low back pain but complains of some mid thoracic right-sided paraspinous pain. No shortness of breath. Did not hit her head she states but her states that she did hit her head. She is not anticoagulated Occurred: just prior to arrival Severity: moderate Injury/Pain Location: back Loss of Consciousness: no loss of consciousness Associated Symptoms (Fall): No Chest Pain, No Confusion, No Dizziness, No Headache, No Neck Pain Allergies and Home Medications Allergies Coded Allergies: quinine (Verified Allergy, Unknown, 08/19/07) Uncoded Allergies: HYROCODONE (Allergy, Unknown, 05/28/21) Patient Home Medication List Home Medication List Reviewed: Yes Cephalexin (Cephalexin) 500 Mg Tablet, 500 MG PO BID Prescribed by: GRUPO LEGER on 09/17/18 0118 Cholecalciferol (Vitamin D3) (Vitamin D3) 2,000 Unit Capsule, 2,000 UNIT PO DAILY, (Reported) Entered as Reported by: REGINALD PRADO on 07/31/11 1340 Multiv,Ca,Iron,Min/Fa/Phytoste (Centrum Cardio Tablet) 1 Each Tablet, 1 EACH PO PER PACKAGE INTRUC, (Reported) Entered as Reported by: FIORELLA WILHELM on 02/03/11 2320 Lowgap-3/Dha/Epa/Fish Oil (Fish Oil 1,000 Mg Ec Softgel) 1 Each Capsule.dr, 1 EACH PO TID, (Reported) Entered as Reported by: FIORELLA WILHELM on 02/03/11 2320 Ondansetron HCl (Ondansetron HCl) 4 Mg Tablet, (Reported) Entered as Reported by: GRAEME JACK on 09/16/18 2338 Pravastatin Sodium (Pravastatin Sodium) 20 Mg Tablet, Unknown Dose PO, (Reported) Entered as Reported by: MORENA GILL on 10/07/15 1617 Ramipril (Altace) 1.25 Mg Capsule, 1.25 MG PO, (Reported) Entered as Reported by: FIORELLA WILHELM on 02/03/11 2320 Review of Systems Review of Systems Constitutional: see HPI Eyes: No Symptoms Reported Ears: No Symptoms Reported Nose: No Symptoms Reported Mouth: No Symptoms Reported Throat: No Symptoms to Report Respiratory: no symptoms reported Cardiovascular: No Symptoms Reported Past Bkvcgvf-Tfbccm-Qrsdag Hx Immunizations Up To Date Tetanus Booster (TDap): Unknown Seasonal Allergies Seasonal Allergies: No Past Medical History Surgeries: Yes (HEART CATH, CABG, CARPAL TUNNEL BILAT, TONSILLECTOMY, 4 NATURAL CHILDBIRTH) Adenoidectomy, CABG, Tonsillectomy Respiratory: No Cardiac: Yes Coronary Artery Disease, Hypertension Neurological: No 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 0.0oz. 58.294240wg; 21.00 BMI Method:Stated General Appearance: WD/WN, no apparent distress, other (Anxious appearing. Very pleasant.) HEENT: PERRL/EOMI, normal ENT inspection Neck: non-tender, full range of motion Respiratory: no respiratory distress, no accessory muscle use Gastrointestinal: normal bowel sounds, non tender, soft Back: normal inspection, other (The right mid thoracic spine is minimal tenderness to palpation just to the right of the spinous process. Minimal erythema at this location.) Extremities: normal range of motion, non-tender Neurologic/Psychiatric: alert, normal mood/affect, oriented x 3 Skin: normal color, warm/dry Heber Coma Score Best Eye Response: (4) Open Spontaneously Best Verbal Response: (5) Oriented Best Motor Response: (6) Obeys Commands Seven Total: 15 Progress/Results/Core Measures Results/Orders My Orders Orders - VERONICA ZELAYA APRN Ct Head/Cervical Spine Wo (05/28/21 10:55) Ct Chest Wo (05/28/21 10:55) Oxycodone/Apap 5/325mg Tablet (Percocet (05/28/21 11:00) Medications Given in ED Current Medications Medications Dose Ordered Sig/Oswmya Route Start Time Stop Time Status Last Admin Dose Admin Oxycodone/ Acetaminophen 0.5 tab ONCE ONCE PO 05/28/21 11:00 05/28/21 11:01 DC 05/28/21 11:22 0.5 TAB Vital Signs/I&O 05/28/21 10:50 Temp 35.8 Pulse 63 Resp 16 B/P (MAP) 188/93 (124) Pulse Ox 97 O2 Delivery Room Air Blood Pressure Mean: 124 Departure Communication (Admissions) Family Conversation NAME: ALEC RUIZ [facility] REC#: [id number] PT STATUS: REG ER : 1935 PHYSICIAN: VERONICA ZELAYA APRN ADMIT DATE: 05/28/21/ER Draft Date of Exam:05/28/21 CT CHEST WO EXAMINATION: CT chest without contrast. TECHNIQUE: Multiple contiguous axial images were obtained through the chest without the use of intravenous contrast. All CT scans use one or more of the following dose optimizing techniques: automated exposure control, MA and/or KvP adjustment based on patient size and exam type or iterative reconstruction. HISTORY: Fall. Right-sided chest pain. COMPARISON: 10/08/2015. FINDINGS: The heart size is within normal limits. Postsurgical changes of CABG are noted. No pericardial effusion is present. There is no mediastinal, hilar, or axillary lymphadenopathy. There is centrilobular emphysema. A small amount of dependent opacities are seen bilaterally, right greater than left. The lungs demonstrate no pulmonary nodules or masses. There are no focal areas of consolidation. No central endobronchial obstructing lesions are identified. There is no pleural effusion or pneumothorax. Age-indeterminate height loss is seen at the T4 and T7 vertebral bodies. There is generalized osteopenia. No focal osseous lesions. Possible age-indeterminate nondisplaced fracture seen in the posterior aspect of the right 6th rib. Small hiatal hernia is seen. Both adrenal glands are unremarkable. IMPRESSION: 1. Age-indeterminate height loss in the T4 and T7 vertebral bodies and within the posterior aspect of the right 6th rib. Recommend correlation with point tenderness and if indicated MRI of the thoracic spine to further evaluate. 2. Centrilobular emphysema with dependent opacities bilaterally, right greater than left. 3. Small hiatal hernia. Dictated on workstation # [id number] Dict: 05/28/21 1128 Trans: 05/28/21 1135 CV [id number] Interpreted by: ELIZABETH PARDO DO Electronically signed by: NAME: ALEC RUIZ [facility] REC#: [id number] PT STATUS: REG ER : 1935 PHYSICIAN: VERONICA ZELAYA APRN ADMIT DATE: 05/28/21/ER Signed Date of Exam:05/28/21 CT HEAD/CERVICAL SPINE WO PROCEDURE: CT head and CT cervical spine without contrast. TECHNIQUE: Multiple contiguous axial images were obtained through the brain and cervical spine without the use of intravenous contrast. Sagittal and coronal reformations through the cervical spine were then performed. Auto Exposure Controls were utilized during the CT exam to meet ALARA standards for radiation dose reduction. INDICATION: Fall. Head and neck pain. COMPARISON: 09/17/2018. FINDINGS: CT head: No large acute territorial ischemia, mass, or hemorrhage. No midline shift or mass effect. Scattered decreased attenuation is seen in the periventricular and subcortical white matter. The ventricles and cortical sulci are mildly prominent. The basilar cisterns are patent and unremarkable. The calvarium is intact. The visualized paranasal sinuses are clear. CT cervical spine: No acute fracture or dislocation is seen in the cervical spine. No focal osseous lesions. Vertebral body heights are well-maintained. The craniocervical junction is well-maintained. There is generalized osteopenia. Mild degenerative changes are seen in the cervical spine with disc osteophyte complexes and uncovertebral arthropathy. Soft tissues of the neck are unremarkable. The included lung apices are clear. IMPRESSION: 1. No hemorrhage or focal intra-axial mass. No CT evidence of large acute territorial ischemia. 2. No acute fracture or dislocation in the cervical spine. Dictated by: Dictated on workstation # [id number] Dict: 05/28/21 1126 Trans: 05/28/21 1134 [id number] Interpreted by: ELIZABETH PARDO DO Electronically signed by: ELIZABETH PARDO DO 05/28/21 1134 Impression Primary Impression: Right rib fracture Additional Impression: Compression fx, thoracic spine Disposition: 01 HOME, SELF-CARE Condition: Stable Departure-Patient Inst. Decision time for Depature: 11:50 Referrals: ZHAO FIGUEROA MD (PCP/Family) Primary Care Physician Patient Instructions: Rib Fractures in Adults, Vertebral Compression Fracture ED Add. Discharge Instructions: 1. You have a nondisplaced fracture of the right sixth rib on the back. You have some height loss which can represent a compression fracture of the thoracic vertebra a #4 and #7. It is unclear if these are new or old. Either way the treatment will be the same which is pain medication and follow-up with primary care. All discharge instructions reviewed with patient and/or family. Voiced understanding. Scripts Docusate Sodium (Colace) 100 Mg Capsule 100 MG PO BID, #20 CAP Prov: VERONICA ZELAYA APRN 05/28/21 Oxycodone HCl/Acetaminophen (Oxycodone-Acetaminophen 5-325) 1 Each Tablet 1 EACH PO Q6H PRN for PAIN-SEVERE MDD 6, #14 TAB Prov: VERONICA ZELAYA APRN 05/28/21 VERONICA ZELAYA APRN May 28, 2021 10:59
[2021-05-28] MEDS ORDERED: oxyCODONE/APAP 5/325MG (PERCOCET 5) TABLET PO ONE (11:00)
--- NOTE | 2021-05-28 11:30 | Diagnostic Imaging Report ---
PROCEDURE: CT head and CT cervical spine without contrast. TECHNIQUE: Multiple contiguous axial images were obtained through the brain and cervical spine without the use of intravenous contrast. Sagittal and coronal reformations through the cervical spine were then performed. Auto Exposure Controls were utilized during the CT exam to meet ALARA standards for radiation dose reduction. INDICATION: Fall. Head and neck pain. COMPARISON: 09/17/2018. FINDINGS: CT head: No large acute territorial ischemia, mass, or hemorrhage. No midline shift or mass effect. Scattered decreased attenuation is seen in the periventricular and subcortical white matter. The ventricles and cortical sulci are mildly prominent. The basilar cisterns are patent and unremarkable. The calvarium is intact. The visualized paranasal sinuses are clear. CT cervical spine: No acute fracture or dislocation is seen in the cervical spine. No focal osseous lesions. Vertebral body heights are well-maintained. The craniocervical junction is well-maintained. There is generalized osteopenia. Mild degenerative changes are seen in the cervical spine with disc osteophyte complexes and uncovertebral arthropathy. Soft tissues of the neck are unremarkable. The included lung apices are clear. IMPRESSION: 1. No hemorrhage or focal intra-axial mass. No CT evidence of large acute territorial ischemia. 2. No acute fracture or dislocation in the cervical spine. Dictated by: Dictated on workstation # [id number]
--- NOTE | 2021-05-28 11:35 | Diagnostic Imaging Report ---
EXAMINATION: CT chest without contrast. TECHNIQUE: Multiple contiguous axial images were obtained through the chest without the use of intravenous contrast. All CT scans use one or more of the following dose optimizing techniques: automated exposure control, MA and/or KvP adjustment based on patient size and exam type or iterative reconstruction. HISTORY: Fall. Right-sided chest pain. COMPARISON: 10/08/2015. FINDINGS: The heart size is within normal limits. Postsurgical changes of CABG are noted. No pericardial effusion is present. There is no mediastinal, hilar, or axillary lymphadenopathy. There is centrilobular emphysema. A small amount of dependent opacities are seen bilaterally, right greater than left. The lungs demonstrate no pulmonary nodules or masses. There are no focal areas of consolidation. No central endobronchial obstructing lesions are identified. There is no pleural effusion or pneumothorax. Age-indeterminate height loss is seen at the T4 and T7 vertebral bodies. There is generalized osteopenia. No focal osseous lesions. Possible age-indeterminate nondisplaced fracture seen in the posterior aspect of the right 6th rib. Small hiatal hernia is seen. Both adrenal glands are unremarkable. IMPRESSION: 1. Age-indeterminate height loss in the T4 and T7 vertebral bodies and within the posterior aspect of the right 6th rib. Recommend correlation with point tenderness and if indicated MRI of the thoracic spine to further evaluate. 2. Centrilobular emphysema with dependent opacities bilaterally, right greater than left. 3. Small hiatal hernia. Dictated by: Dictated on workstation # [id number]
[2021-05-28] MEDS ORDERED: DOCU-143 PO (11:51)
[2021-05-28] MEDS ORDERED: OXYC1TAB11 PO (11:51)
[2021-05-28 12:03] VITALS: BP 122/89
== END 2021-05-28 12:03 | disposition home or self-care (01) ==
LOC: EDUNIT# 10:41 → ER 10:42
DX: S22.31XA Fracture of one rib, right side, initial encounter for closed fracture (principal); S22.049A Unspecified fracture of fourth thoracic vertebra, initial encounter for closed fracture; S22.069A Unspecified fracture of T7-T8 vertebra, initial encounter for closed fracture; W22.8XXA Striking against or struck by other objects, initial encounter; Y92.010 Kitchen of single-family (private) house as the place of occurrence of the external cause
CPT/HCPCS: 70450; 71250; 72125

== ENCOUNTER → 2021-06-06 | Outpatient (CLI) | payer MEDICARE, OTHER ==
[~2021-06-06] MED LIST changes: +DOCU-143 PO; +OXYC1TAB11 PO
--- NOTE | 2021-06-06 11:24 | Diagnostic Imaging Report ---
CLINICAL INDICATIONS: Patient fell approximately a week ago. Patient has mid spine pain. Exam: MRI of the thoracic spine performed without IV contrast. Sequences include sagittal T1, sagittal T2, sagittal stir, and axial T2. Comparison: X-ray of the thoracic spine dated 11/22/2008. CT scan of the chest without contrast dated 10/08/2015. CT scan of the chest without contrast dated 05/28/2021. There is a roughly 80% compression fracture deformity involving T7 vertebra with high T2 signal involving the vertebra. This may represent an acute/subacute fracture. There is no significant retropulsed component. There is no other acute thoracic spine fracture seen. There is a chronic T4 burst fracture which is healed. There is no significant central canal stenosis. Mild chronic compression deformity of the inferior T2 endplate noted. The remainder of the thoracic vertebra heights are otherwise unremarkable. There is excessive kyphosis of the thoracic spine centered at T7 level. There are degenerative spurs involving the thoracic spine. There is facet arthropathy. There is tortuosity of the thoracic spinal cord at the T3-T4 level with a displaced anteriorly and up against the anterior aspect of the thecal sac. There is slight concave deformity of the posterior aspect of the thoracic cord in the region. The CSF signal intensity area posterior to the the deformed thoracic cord measures grossly 8 mm x 13 mm in AP x transverse dimensions and 16 mm by craniocaudal dimension. There is flow artifact seen within the area. It appears as though there may be continuity of CSF flow artifact through this area of prominent thecal sac CSF space area. There is no definite dural defects seen. There is prominence of the posterior epidural fat seen from the T4-T8 levels measuring up to 4 mm in AP dimension. There is mild central canal narrowing at T7-T8 level. Otherwise, there is no significant central canal stenosis. There is no significant bony neural foramen narrowing. IMPRESSION: 1: There is an acute/subacute compression fracture deformity of the T7 vertebra. There is no significant central canal stenosis. 2: There is a chronic T4 burst fracture with no significant stenosis. There is mild chronic compression deformity of the T2 vertebra. 3: There is tortuosity and deformity of the thoracic cord at the T3-T4 level which is displaced anteriorly. There is no definite cord signal abnormality. There is no defect of the thecal sac seen. This may be related to spinal arachnoid cyst posteriorly, but thoracic cord herniation cannot be completely excluded. 4: There is thoracic spine degenerative disease. Dictated by: Dictated on workstation # [id number]
== END ==
LOC: RAD 08:00
PROVIDERS: ATTEND Nurse Practitioner Family
DX: S22.040A Wedge compression fracture of fourth thoracic vertebra, initial encounter for closed fracture (principal); M47.814 Spondylosis without myelopathy or radiculopathy, thoracic region; X58.XXXA Exposure to other specified factors, initial encounter
CPT/HCPCS: 72146

== ENCOUNTER → 2021-06-06 | Outpatient (CLI) | payer MEDICARE, OTHER ==
[~2021-06-06] MED LIST changes: +DENOSUMAB 60 MG/1 ML (PROLIA) SQ SCH
[2021-06-06 09:15] VITALS: BP 161/72
== END ==
LOC: SDC 08:49
PROVIDERS: ATTEND Family Medicine
DX: M81.0 Age-related osteoporosis without current pathological fracture (principal)
CPT/HCPCS: 96372

== ENCOUNTER 2021-09-02 09:37 | Emergency (ER) | payer MEDICARE, OTHER ==
[~2021-09-02] VITALS: Ht 157.5 cm; Wt 52.2 kg
[~2021-09-02 09:37] MED LIST changes: -DENOSUMAB 60 MG/1 ML (PROLIA) SQ SCH
--- NOTE | 2021-09-02 10:55 | ED Fall/Injury ---
General Chief Complaint: Trauma-Non Activation Stated Complaint: FALL/HEAD INJURY Nursing Triage Note: PT TO RM 7 BY WC WITH COMPLAINT OF FALL. PT STATES SHE TRIPPED OVER A BOX, FELL AND HIT HEAD. DENIES LOC. DOES TAKE BLOOD THINNERS. Source: patient History of Present Illness Date Seen by Provider: Sep 02, 2021 Time Seen by Provider: 10:15 Initial Comments PT ARRIVES VIA POV FROM HOME Allergies and Home Medications Allergies Coded Allergies: quinine (Verified Allergy, Unknown, 08/19/07) Uncoded Allergies: HYROCODONE (Allergy, Unknown, 05/28/21) Patient Home Medication List Cephalexin (Cephalexin) 500 Mg Tablet, 500 MG PO BID Prescribed by: GRUPO LEGER on 09/17/18 0118 Cholecalciferol (Vitamin D3) (Vitamin D3) 2,000 Unit Capsule, 2,000 UNIT PO DAILY, (Reported) Entered as Reported by: REGINALD PRADO on 07/31/11 1340 Docusate Sodium (Colace) 100 Mg Capsule, 100 MG PO BID Prescribed by: VERONICA ZELAYA on 05/28/21 1151 Multiv,Ca,Iron,Min/Fa/Phytoste (Centrum Cardio Tablet) 1 Each Tablet, 1 EACH PO PER PACKAGE INTRUC, (Reported) Entered as Reported by: FIORELLA WILHELM on 02/03/11 2320 [place]-3/Dha/Epa/Fish Oil (Fish Oil 1,000 Mg Ec Softgel) 1 Each Capsule.dr, 1 EACH PO TID, (Reported) Entered as Reported by: FIORELLA WILHELM on 02/03/11 2320 Ondansetron HCl (Ondansetron HCl) 4 Mg Tablet, (Reported) Entered as Reported by: GRAEME JACK on 09/16/18 2338 Oxycodone HCl/Acetaminophen (Oxycodone-Acetaminophen 5-325) 1 Each Tablet, 1 EACH PO Q6H PRN for PAIN-SEVERE Prescribed by: VERONICA ZELAYA on 05/28/21 1152 Pravastatin Sodium (Pravastatin Sodium) 20 Mg Tablet, Unknown Dose PO, (Reported) Entered as Reported by: MORENA GILL on 10/07/15 1617 Ramipril (Altace) 1.25 Mg Capsule, 1.25 MG PO, (Reported) Entered as Reported by: FIORELLA WILHELM on 02/03/11 2320 Past Lzaxozv-Zibfnh-Djmxnn Hx Patient Social History Tobacco Use?: No Use of E-Cig and/or Vaping dev: No Substance use?: No Alcohol Use?: No Pt feels they are or have been: No Immunizations Up To Date Tetanus Booster (TDap): Unknown First/Initial COVID19 Vaccinat: 01/03/21 Second COVID19 Vaccination Mc: 01/03/21 Third COVID19 Vaccination Date: 01/03/21 Seasonal Allergies Seasonal Allergies: No Past Medical History Surgeries: Yes (HEART CATH, CABG, CARPAL TUNNEL BILAT, TONSILLECTOMY, 4 NATURAL CHILDBIRTH) Adenoidectomy, CABG, Tonsillectomy Respiratory: No Cardiac: Yes Coronary Artery Disease, Hypertension Neurological: 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 0.0oz. [id number]; 21.00 BMI Method:Stated Progress/Results/Core Measures Results/Orders My Orders Orders - RAQUEL SETH DO Ct Head/Face/Cervical Wo (09/02/21 10:27) Vital Signs/I&O 09/02/21 09:43 Pulse 66 Resp 16 B/P (MAP) 180/85 (116) Pulse Ox 97 O2 Delivery Room Air Blood Pressure Mean: 116 Departure Impression Primary Impression: Minor head injury without loss of consciousness Additional Impressions: FACIAL CONTUSION AND HEMATOMA Fall from standing Disposition: 01 HOME, SELF-CARE Condition: Stable Departure-Patient Inst. Decision time for Depature: 11:31 Referrals: ZHAO FIGUEROA MD (PCP/Family) Primary Care Physician Patient Instructions: Contusion (DC), Minor Head Injury (DC) Add. Discharge Instructions: ICE TO SORE AREA AT 20 MINUTE INTERVALS TYLENOL NEEDED FOR PAIN FOLLOW UP WITH DR. FIGUEROA NEEDED, RETURN TO ER IF SYMPTOMS WORSEN All discharge instructions reviewed with patient and/or family. Voiced understanding. RAQUEL SETH DO Sep 02, 2021 10:54
--- NOTE | 2021-09-02 11:22 | Diagnostic Imaging Report ---
PROCEDURE: CT head, face, and cervical spine without contrast. TECHNIQUE: Multiple contiguous axial images were obtained through the head, neck, and facial bones without the use of intravenous contrast. Sagittal and coronal reformations through the cervical spine and facial bones were also performed. Auto Exposure Controls were utilized during the CT exam to meet ALARA standards for radiation dose reduction. INDICATION: Fall. Head injury and pain. Anticoagulation therapy. COMPARISON: CT head and cervical spine without contrast 05/28/2021. FINDINGS: CT HEAD AND MAXILLOFACIAL: Scalp contusion overlying the right frontal convexity. The skull base and calvarium are intact. No intracranial hemorrhage, mass effect, hydrocephalus, or extra-axial fluid collections. No CT evidence of a territorial infarction. No maxillofacial fractures. Mild mucosal thickening in the ethmoid and sphenoid sinuses. Mastoids are unremarkable. Normal alignment of the temporomandibular joints. The mandible is intact. CT CERVICAL SPINE: Normal alignment. Vertebral body heights are preserved. No fractures. Mild spondylotic changes. No evidence of high-grade spinal canal stenosis by noncontrast CT. Moderate atherosclerotic calcifications in the carotid bifurcations. The lung apices are clear. IMPRESSION: 1. Scalp contusion overlying the right frontal convexity. No calvarial fractures. 2. No acute intracranial or cervical spine CT findings. No maxillofacial fractures. Dictated by: Dictated on workstation # [id number]
[2021-09-02 11:57] VITALS: BP 156/75
== END 2021-09-02 11:57 | disposition home or self-care (01) ==
LOC: EDUNIT# 09:37 → ER 09:40
DX: S09.90XA Unspecified injury of head, initial encounter (principal); S00.83XA Contusion of other part of head, initial encounter; W01.198A Fall on same level from slipping, tripping and stumbling with subsequent striking against other object, initial encounter
CPT/HCPCS: 70450; 70486; 72125

== ENCOUNTER 2022-01-08 13:34 | Outpatient (CLI) | payer MEDICARE, OTHER ==
[~2022-01-08] VITALS: Ht 157.5 cm; Wt 52.2 kg
[2022-01-08] MEDS ORDERED: DENOSUMAB 60 MG/1 ML (PROLIA) SQ ONE (14:00)
[2022-01-08 14:07] VITALS: BP 132/60
== END 2022-01-08 14:07 | disposition home or self-care (01) ==
LOC: SDC 13:34
PROVIDERS: ATTEND Nurse Practitioner Family
DX: M81.0 Age-related osteoporosis without current pathological fracture (principal)
CPT/HCPCS: 96372

== ENCOUNTER → 2022-02-25 | Outpatient (CLI) | payer MEDICARE, OTHER ==
--- NOTE | 2022-02-25 13:37 | Diagnostic Imaging Report ---
INDICATION: Postmenopausal screening COMPARISON: 02/14/2020 FINDINGS: AP Spine L1-L4: [BMD (g/cm2): 0.980] [T-Score: -1.8] [Z-Score: 0.6] [BMD Previous: 0.920] [BMD % Change: 6.5] LT Hip Neck: [BMD (g/cm2): 0.873] [T-Score: -1.2] [Z-Score: 1.5] LT Hip Total: [BMD (g/cm2):0.988] [T-Score:-0.2] [Z-Score: 2.5] [BMD Previous: 0.981] [BMD % Change: 0.7] RT Hip Neck: [BMD (g/cm2):0.910] [T-Score:-0.9] [Z-Score:1.8] RT Hip Total: [BMD (g/cm2):1.024] [T-score:0.1] [Z-Score:2.8] [BMD Previous:1.024] [BMD % Change:0.0] *Indicates significant change from prior examination based on 95% confidence level. World Health Organization criteria for BMD interpretation classify patients as Normal (T-score at or above -1.0), Osteopenic (T-score between -1.0 and -2.5) or Osteoporotic (T-score at or below -2.5). LIMITATIONS AND MODIFICATION: None. FRACTURE RISK (FRAX SCORE): The ten year probability of (%): Major Osteoporotic Fracture: [NA] Hip Fracture: [NA] IMPRESSION: 1. Osteopenia (Low bone mass). 2. There has been a statistically significant increase in BMD since prior exam, detailed above. 3. See below National Osteoporosis Foundation guidelines on when to potentially initiate pharmacologic therapy. Based on the National Osteoporosis Foundation Guidelines, pharmacologic treatment should be initiated in any of the following, unless clinical conditions suggest otherwise: * Any patient with prior fragility fracture of the hip or vertebrae. A spine fracture indicates 5X risk for subsequent spine fracture and 2X risk for subsequent hip fracture. * Osteoporosis (T-score <-2.5). * Postmenopausal women and men age 50 and older with low bone mass/osteopenia (T-score between -1.0 and -2.5) by DXA and 10-year major osteoporotic fracture greater than 20% or a 10-year probability of hip fracture greater than 3%. These fracture risks are supplied above in the FRAX score, if applicable. * Clinician judgement and/or patient preferences may indicate treatment for people with 10-year fracture probabilities above or below these levels. Dictated by: Dictated on workstation # [id number]
== END ==
LOC: RAD 11:18
PROVIDERS: ATTEND Family Medicine
DX: M81.0 Age-related osteoporosis without current pathological fracture (principal); M85.80 Other specified disorders of bone density and structure, unspecified site; Z78.0 Asymptomatic menopausal state
CPT/HCPCS: 77080

== ENCOUNTER 2022-04-13 23:11 | Emergency (ER) | payer MEDICARE, OTHER ==
[~2022-04-13] VITALS: Ht 157 cm; Wt 50.3 kg
--- NOTE | 2022-04-13 23:38 | ED Fall/Injury ---
General Chief Complaint: Trauma-Non Activation Stated Complaint: FALL,LEFT RIB PAIN,LEFT HIP PAIN Nursing Triage Note: Pt presents with c/o L rib, and knee pain after a fall. Pt states she believes she tripped over a mat and fell on the concrete floor. Pt denies hitting head. Pt states he had to help her to her feet, and that she was sitting up when he got to her. Denies LOC. Source: patient, family Exam Limitations: no limitations History of Present Illness Date Seen by Provider: Apr 13, 2022 Time Seen by Provider: 23:20 Allergies and Home Medications Allergies Coded Allergies: quinine (Verified Allergy, Unknown, 08/19/07) Uncoded Allergies: HYROCODONE (Allergy, Unknown, 05/28/21) Patient Home Medication List Cephalexin (Cephalexin) 500 Mg Tablet, 500 MG PO BID Prescribed by: GRUPO LEGER on 09/17/18 0118 Cholecalciferol (Vitamin D3) (Vitamin D3) 2,000 Unit Capsule, 2,000 UNIT PO DAILY, (Reported) Entered as Reported by: REGINALD PRADO on 07/31/11 1340 Docusate Sodium (Colace) 100 Mg Capsule, 100 MG PO BID Prescribed by: VERONICA ZELAYA on 05/28/21 1151 Multiv,Ca,Iron,Min/Fa/Phytoste (Centrum Cardio Tablet) 1 Each Tablet, 1 EACH PO PER PACKAGE INTRUC, (Reported) Entered as Reported by: FIORELLA WILHELM on 02/03/11 2320 [place]-3/Dha/Epa/Fish Oil (Fish Oil 1,000 Mg Ec Softgel) 1 Each Capsule.dr, 1 EACH PO TID, (Reported) Entered as Reported by: FIORELLA WILHELM on 02/03/11 2320 Ondansetron HCl (Ondansetron HCl) 4 Mg Tablet, (Reported) Entered as Reported by: GRAEME JACK on 09/16/18 2338 Oxycodone HCl/Acetaminophen (Oxycodone-Acetaminophen 5-325) 1 Each Tablet, 1 EACH PO Q6H PRN for PAIN-SEVERE Prescribed by: VERONICA ZELAYA on 05/28/21 1152 Pravastatin Sodium (Pravastatin Sodium) 20 Mg Tablet, Unknown Dose PO, (Reported) Entered as Reported by: MORENA GILL on 10/07/15 1617 Ramipril (Altace) 1.25 Mg Capsule, 1.25 MG PO, (Reported) Entered as Reported by: FIORELLA WILHELM on 02/03/11 8380 Past Fgrfdhy-Upfohz-Fyipof Hx Immunizations Up To Date Tetanus Booster (TDap): Unknown Influenza Vaccine Up-to-Date: Yes; Up-to-Date First/Initial COVID19 Vaccinat: 01/03/21 Second COVID19 Vaccination Mc: 01/03/21 Third COVID19 Vaccination Date: 01/03/21 Seasonal Allergies Seasonal Allergies: No Past Medical History Surgeries: Yes (HEART CATH, CABG, CARPAL TUNNEL BILAT, TONSILLECTOMY, 4 NATURAL CHILDBIRTH) Adenoidectomy, Cardiac, CABG, Orthopedic, Tonsillectomy Respiratory: No Cardiac: Yes Coronary Artery Disease, Hypertension 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 0.0oz. 58.437584px; 20.00 BMI Method:Stated Progress/Results/Core Measures Results/Orders Lab Results Laboratory Tests Test 04/13/22 23:51 Range/Units Urine Color YELLOW Urine Clarity CLEAR Urine pH 7.0 5-9 Urine Specific [place] 1.020 1.016-1.022 Urine Protein NEGATIVE NEGATIVE Urine Glucose (UA) NEGATIVE NEGATIVE Urine Ketones NEGATIVE NEGATIVE Urine Nitrite NEGATIVE NEGATIVE Urine Bilirubin NEGATIVE NEGATIVE Urine Urobilinogen 0.2 < = 1.0 MG/DL Urine Leukocyte Esterase NEGATIVE NEGATIVE Urine RBC (Auto) TRACE-I H NEGATIVE Urine RBC NONE /HPF Urine WBC NONE /HPF Urine Crystals NONE /LPF Urine Bacteria NEGATIVE /HPF Urine Casts NONE /LPF Urine Mucus NEGATIVE /LPF Urine Culture Indicated NO My Orders Orders - SWETA ROY MD Ua Culture If Indicated (04/13/22 23:35) Ct Chest Wo (04/14/22 00:01) Ct Head/Cervical Spine Wo (04/14/22 00:01) Knee, Left, 3 Views (04/14/22 00:01) Vital Signs/I&O 04/13/22 23:18 Pulse 73 Resp 18 B/P (MAP) 157/72 (100) Blood Pressure Mean: 100 Departure Impression Primary Impression: Fall on same level from tripping as cause of accidental injury Additional Impressions: Multiple contusions Compression fracture of T7 vertebra Qualified Codes: S22.060A - Wedge compression fracture of T7-T8 vertebra, initial encounter for closed fracture Disposition: HOME, SELF-CARE Condition: Stable Departure-Patient Inst. Decision time for Depature: 02:15 Referrals: ZHAO FIGUEROA MD (PCP/Family) Primary Care Physician Patient Instructions: Contusion (DC), Preventing Falls in Older Adults, Vertebral Compression Fracture Add. Discharge Instructions: You may use Tylenol (acetaminophen) up to 1000 mg every 6 hours as needed for pain. Icing affected areas in 20-minute intervals may also be helpful. You may use topical pain relief product such as Bengay if they are helpful. Follow-up with your primary care provider regarding the compression fracture at T7. If desired, this could be evaluated further with MRI to determine if there are any treatment options available to you. Evaluate your home for fall hazards. Consider use of adaptive equipment such as a cane or walker when needed. See the attached handouts for more information. Return to the ER if you have any worsening of symptoms despite following these instructions. All discharge instructions reviewed with patient and/or family. Voiced understanding. Copy Copies To 1: ZHAO FIGUEROA MD, JOSHUA T MD Apr 13, 2022 23:38
[2022-04-14 00:21] LABS: BILIRUBIN,URINE NEGATIVE (NEGATIVE); CLARITY,URINE CLEAR; COLOR,URINE YELLOW; GLUCOSE, URINE (UA) NEGATIVE (NEGATIVE); KETONES,URINE NEGATIVE (NEGATIVE); LEUKOCYTE ESTERASE ,URINE NEGATIVE (NEGATIVE); NITRITE,URINE NEGATIVE (NEGATIVE); PROTEIN,URINE NEGATIVE (NEGATIVE)
[2022-04-14 00:29] LABS: BACTERIA,URINE NEGATIVE /HPF
[2022-04-14 02:32] VITALS: BP 162/70
--- NOTE | 2022-04-14 06:57 | Diagnostic Imaging Report ---
EXAMINATION: CT chest without contrast. TECHNIQUE: Multiple contiguous axial images were obtained through the chest without the use of intravenous contrast. All CT scans use one or more of the following dose optimizing techniques: automated exposure control, MA and/or KvP adjustment based on patient size and exam type or iterative reconstruction. HISTORY: Chest pain after fall. COMPARISON: None available. FINDINGS: Thyroid: The thyroid is normal. Mediastinum: Heart size is normal without significant pericardial effusion. Calcifications of the aorta and coronary vessels. Thoracic aorta is normal in caliber. No suspicious lymphadenopathy. Lungs and airways: The lungs are clear without consolidation, pleural effusion, or pneumothorax. Atelectasis or scarring within the dependent lungs and lung bases. There is calcific granulomas present. The airways are normal. Upper abdomen: The subphrenic structures are normal. Musculoskeletal: There has been interval progression of the T7 compression fracture. Surgical changes from median sternotomy. Chronic-appearing right rib fracture. IMPRESSION: 1. No acute abnormality within the chest. 2. Progression of the T7 vertebral body compression fracture. 3. Agree with preliminary interpretation. Dictated by: Dictated on workstation # [id number]
--- NOTE | 2022-04-14 07:01 | Diagnostic Imaging Report ---
EXAMINATION: CT head and CT cervical spine without contrast. TECHNIQUE: Multiple contiguous axial images were obtained through the brain and cervical spine without the use of intravenous contrast. Sagittal and coronal reformations through the cervical spine were then performed. All CT scans use one or more of the following dose optimizing techniques: automated exposure control, MA and/or KvP adjustment based on patient size and exam type or iterative reconstruction. HISTORY: Head and neck pain after injury. COMPARISON: 09/02/2021 FINDINGS: HEAD: Mild diffuse cerebral volume loss with proportional enlargement of the ventricles and sulci. Mild hypodensities throughout the supratentorial white matter of both cerebral hemispheres. No acute intracranial hemorrhage or abnormal extra-axial fluid collections are present. No hyperdense vessel. The calvarium is intact. The mastoid air cells are clear. The visualized paranasal sinuses are clear. The orbits are normal. C-SPINE: Vertebral body height and alignment are preserved. No acute fracture, dislocation, or destructive osseous process. There is multilevel facet hypertrophy without perched facets. No significant central canal or neuroforaminal stenosis. The paraspinous soft tissues are normal. The visualized thyroid gland is normal. The visualized lung apices are normal. IMPRESSION: 1. No acute intracranial abnormality. 2. Degenerative changes of the cervical spine without acute osseous abnormality. 3. Agree with preliminary interpretation. Dictated by: Dictated on workstation # [id number]
--- NOTE | 2022-04-14 07:36 | Diagnostic Imaging Report ---
Indication: Left knee injury from a fall 3 views of left knee show no fracture, dislocation or pathologic effusion. There are degenerative changes with spurring at the margins of the articular surfaces in all 3 compartments. IMPRESSION: Mild tricompartmental degenerative changes. No acute abnormality seen. Dictated by: Dictated on workstation # [id number]
== END 2022-04-14 02:30 | disposition home or self-care (01) ==
LOC: EDUNIT# 23:11 → ER 23:14
DX: S22.068A Other fracture of T7-T8 thoracic vertebra, initial encounter for closed fracture (principal); T14.8XXA Other injury of unspecified body region, initial encounter; W01.0XXA Fall on same level from slipping, tripping and stumbling without subsequent striking against object, initial encounter
CPT/HCPCS: 70450; 71250; 72125; 73562; 81000

== ENCOUNTER → 2022-07-25 | Outpatient (CLI) | payer MEDICARE, OTHER ==
[~2022-07-25] MED LIST changes: +DENOSUMAB 60 MG/1 ML (PROLIA) SQ ONE
[2022-07-25 10:45] VITALS: BP 130/85
== END ==
LOC: SDC 10:39
PROVIDERS: ATTEND Nurse Practitioner Family
DX: M81.0 Age-related osteoporosis without current pathological fracture (principal)
CPT/HCPCS: 96372

== ENCOUNTER 2022-12-29 22:05 | Emergency (ER) | payer MEDICARE, OTHER ==
[~2022-12-29] VITALS: Ht 154.9 cm; Wt 47.6 kg
[~2022-12-29 22:05] MED LIST changes: -DENOSUMAB 60 MG/1 ML (PROLIA) SQ ONE
--- NOTE | 2022-12-29 22:18 | ED Fall/Injury ---
General Chief Complaint: Trauma-Non Activation Stated Complaint: FALL Nursing Triage Note: PT ARRIVED POV WITH CC OF A FALL. PT STATES THAT SHE TRIPPED IN THE HOUSE AND HIT HER RIGHT SIDE. DENIES LOC. Source: patient Exam Limitations: no limitations (RODGER BEDOLLA DO) Source: spouse (MAUREEN CARRERO) History of Present Illness Date Seen by Provider: Dec 29, 2022 Time Seen by Provider: 22:09 (RODGER BEDOLLA DO) Initial Comments 87 YO female presents to ED c/o fall onset x 30 minutes prior to arrival. Pt re ports she tripped on the door frame landing on her right side. She did not strike her head or have any LOC. Pt states her pain is mostly located in her neck and left rib area, rating 6/10. She has mild left sided shoulder pain and bilateral knee pain. She is able to move all joints and is ambulatory. She denies hip pain, chest pain, shortness of breath, dizziness, syncope, or any o ther complaints. She has a hx of arthritis, scoliosis, HTN, HLD, and takes a baby aspirin. Occurred: just prior to arrival Severity: mild Injuries/Pain Location: neck, upper extremity, chest (left rib area) Context: tripped Loss of Consciousness: no loss of consciousness Associated Symptoms (Fall): No Abdominal Pain, No Chest Pain, No Confusion, No Dizziness, No Headache, No Lightheadedness, No Nausea/Vomiting, No Neck Pain, No Ringing in Ears, No Shortness of Air, No Slurred Speech, No Trouble Walking, No Vision Changes (MAUREEN CARRERO) Allergies and Home Medications Allergies Coded Allergies: quinine (Verified Allergy, Unknown, 08/19/07) Uncoded Allergies: HYROCODONE (Allergy, Unknown, 05/28/21) Patient Home Medication List Home Medication List Reviewed: Yes (MAUREEN CARRERO) Cephalexin (Cephalexin) 500 Mg Tablet, 500 MG PO BID Prescribed by: GRUPO LEGER on 09/17/18 0118 Cholecalciferol (Vitamin D3) (Vitamin D3) 2,000 Unit Capsule, 2,000 UNIT PO DAILY, (Reported) Entered as Reported by: REGINALD PRADO on 07/31/11 1340 Docusate Sodium (Colace) 100 Mg Capsule, 100 MG PO BID Prescribed by: VERONICA ZELAYA on 05/28/21 1151 Multiv,Ca,Iron,Min/Fa/Phytoste (Centrum Cardio Tablet) 1 Each Tablet, 1 EACH PO PER PACKAGE INTRUC, (Reported) Entered as Reported by: FIORELLA WILHELM on 02/03/11 2320 [place]-3/Dha/Epa/Fish Oil (Fish Oil 1,000 Mg Ec Softgel) 1 Each Capsule.dr, 1 EACH PO TID, (Reported) Entered as Reported by: FIORELLA WILHELM on 02/03/11 232 Ondansetron HCl (Ondansetron HCl) 4 Mg Tablet, (Reported) Entered as Reported by: GRAEME JACK on 09/16/18 2338 Oxycodone HCl/Acetaminophen (Oxycodone-Acetaminophen 5-325) 1 Each Tablet, 1 EACH PO Q6H PRN for PAIN-SEVERE Prescribed by: VERONICA ZELAYA on 05/28/21 1152 Pravastatin Sodium (Pravastatin Sodium) 20 Mg Tablet, Unknown Dose PO, (Reported) Entered as Reported by: MORENA GILL on 10/07/15 1617 Ramipril (Altace) 1.25 Mg Capsule, 1.25 MG PO, (Reported) Entered as Reported by: FIORELLA WILHELM on 02/03/11 232 Review of Systems Review of Systems Constitutional: No chills, No diaphoresis, No fever Eyes: Denies Blindness Ears, Nose, Mouth, Throat: denies epistaxis, denies loose teeth Respiratory: No cough, No dyspnea on exertion, No short of breath Cardiovascular: No chest pain, No edema, No palpitations, No syncope Gastrointestinal: No abdominal pain, No diarrhea, No nausea, No vomiting Genitourinary: No decreased output : No Musculoskeletal: No back pain; joint pain (left shoulder, left rib cage); No muscle pain, No muscle stiffness, No muscle twitching, No muscle weakness; neck pain Skin: No change in color, No lesions, No rash Psychiatric/Neurological: Denies Headache, Denies Numbness, Denies Weakness (MAUREEN CARRERO) Past Emdouwl-Etrahg-Pkbagl Hx Patient Social History Tobacco Use?: No Substance use?: No Alcohol Use?: Yes Alcohol Frequency: Once in a while (RODGER BEDOLLA DO) Tobacco Use?: No Use of E-Cig and/or Vaping dev: No Substance use?: No (ALISEMAUREEN) Immunizations Up To Date Tetanus Booster (TDap): Unknown First/Initial COVID19 Vaccinat: 01/03/21 Second COVID19 Vaccination Mc: 01/03/21 Third COVID19 Vaccination Date: 01/03/21 (RODGER BEDOLLA DO) Seasonal Allergies Seasonal Allergies: No (RODGER BEDOLLA DO) Past Medical History Surgery/Hospitalization HX: HEART SURGERY, BROKEN PELVIS Surgeries: Yes (HEART CATH, CABG, CARPAL TUNNEL BILAT, TONSILLECTOMY, 4 NATURAL CHILDBIRTH) Adenoidectomy, Cardiac, CABG, Orthopedic, Tonsillectomy Respiratory: No Cardiac: Yes Coronary Artery Disease, High Cholesterol, Hypertension Neurological: No Reproductive Disorders: No 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 0.0oz. 58.681399gz; 19.00 BMI Method:Stated (RODGER BEDOLLA DO) General Appearance: WD/WN, no apparent distress, thin, other (Elderly female in NAD. ) HEENT: PERRL/EOMI, normal ENT inspection Neck: full range of motion, supple, tender midline (Midline tenderness of C6-T2-3. No step offs or palpable abnormalities.) Cardiovascular: regular rate, rhythm, no edema, no gallop, no JVD, no murmur Respiratory: lungs clear, normal breath sounds, no respiratory distress, no accessory muscle use; No respiratory distress, No rhonchi, No wheezing; other (left rib cage tenderness) Peripheral Pulses: 2+ Dorsalis Pedis (R), 2+ Left Dors-Pedis (L), 2+ Radial Pulses (R), 2+ Radial Pulses (L) Gastrointestinal: normal bowel sounds, non tender, soft, no organomegaly, no pulsatile mass Back: no CVA tenderness; No decreased range of motion; vertebral tenderness (C6-T2 midline tenderness. No step offs or bony deformities noted) Extremities: normal inspection, no pedal edema, no calf tenderness, normal capillary refill, pelvis stable; No calf tenderness, No pedal edema, No slow capillary refill, No swelling; other (mild tenderness to palpation of left shoulder - normal sensation, normal ROM, normal strength. 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 tested, no motor/sensory deficits, alert, normal mood/affect, oriented x 3; No aphasia, No motor weakness, No disoriented x 3 Skin: normal color, warm/dry; No rash Lymphatic: no adenopathy (MAUREEN CARRERO) [place] Coma Score Best Eye Response: (4) Open Spontaneously Best Verbal Response: (5) Oriented Best Motor Response: (6) Obeys Commands (15) (MAUREEN CARRERO) Progress/Results/Core Measures Results/Orders Medications Given in ED Current Medications Medications Dose Ordered Sig/Sowmya Route Start Time Stop Time Status Last Admin Dose Admin Acetaminophen 1,000 mg ONCE ONCE PO 12/29/22 22:45 12/29/22 22:46 DC 12/29/22 22:42 1,000 MG (MAUREEN CARRERO) Vital Signs/I&O 12/29/22 22:09 Pulse 75 B/P (MAP) 175/112 (133) Pulse Ox 99 O2 Delivery Room Air (MAUREEN CARRERO) Blood Pressure Mean: 133 Progress Progress Note : Time: 22:56 Progress Note 87 YO female presented to ED following a fall onto her right side, with c/o pain to neck, left shoulder, and left rib cage. She is afebrile with vital signs requiring no intervention at this time. Exam is remarkable for a frail, elderly female in NAD. She had mildline pain to palpation of C7-2 with no bony step offs or deformities. Mild TTP of left shoulder with normal ROM and strength. Mild TTP of left rib cage, no respiratory distress or evidence of flail chest. Mild tenderness to bilateral knees, with normal ROM and she was ambulatory upon arrival. Plan to obtain CT imaging of cervical and thoracic spine, as well as chest xray. As she is ambulatory, has normal ROM, and minimal tenderness to bilateral knees will hold off on obtaining imaging. Will provide Tylenol for pain. 2352: Pt resting comfortably in bed, feeling better after Tylenol. She reports 2 years ago she fractured her thoracic vertebrae after falling; she was placed in a brace and did not require any surgery or further intervention. Imaging pending at this time. (MAUREEN CARRERO) Departure Communication (Admissions) I have personally seen and evaluated the patient and agree with the history and physical provided by the medical student. CT scan of the cervical and thoracic spine are negative for any acute findings. X-ray chest is negative for any acute cardiopulmonary abnormalities. I have reviewed all imaging personally. Patient is neurovascularly, neurologically intact. She did not hit her head or lose consciousness is not on any blood thinning medications. She is discharged home in stable condition (RODGER BEDOLLA DO) Impression Primary Impression: Fall from standing Qualified Codes: W19.XXXA - Unspecified fall, initial encounter Additional Impressions: Left-sided chest wall pain Neck pain Thoracic back pain Qualified Codes: M54.6 - Pain in thoracic spine Disposition: HOME, SELF-CARE Condition: Stable Departure-Patient Inst. Referrals: ZHAO FIGUEROA MD (PCP/Family) Primary Care Physician Patient Instructions: Acute Pain, Adult Add. Discharge Instructions: Your CT scans and x-rays are negative for any new findings. It does not appear that anything has been severely injured. You will likely be more sore tomorrow than you are today. Use ibuprofen and Tylenol as needed for pains. Increase your fluids and rest. Return to the emergency department for any severe concerns All discharge instructions reviewed with patient and/or family. Voiced understanding. RODGER BEDOLLA DO Dec 29, 2022 22:18 MAUREEN CARRERO Dec 29, 2022 22:45
[2022-12-29] MEDS ORDERED: ACETAMINOPHEN 500 MG TABLET PO ONE (22:45)
[2022-12-30 00:22] VITALS: BP 157/69
--- NOTE | 2022-12-30 07:43 | Diagnostic Imaging Report ---
INDICATION: Left chest wall pain, fall TECHNIQUE: Single view chest 10:40 PM CORRELATION STUDY: 09/17/2018 FINDINGS: Sternal wires intact with prior coronary bypass. Heart size, mediastinum and vasculature appearing to be within normal limits. The lungs are clear with no consolidating infiltrate. There is no significant effusion or pneumothorax. Prior right-sided rib fracture deformities. No acute displaced fracture. IMPRESSION: 1. Negative for acute abnormality of the chest. Dictated by: Dictated on workstation # [id number]
--- NOTE | 2022-12-30 08:21 | Diagnostic Imaging Report ---
PROCEDURE: CT cervical spine without contrast. TECHNIQUE: Multiple contiguous axial images were obtained through the cervical spine without the use of intravenous contrast. Sagittal and coronal reformations were then performed. Auto Exposure Controls were utilized during the CT exam to meet ALARA standards for radiation dose reduction. INDICATION: 87-year-old female, status post fall, pain and soreness. CORRELATION STUDY: 04/14/2022 FINDINGS: Cervical spine alignment is anatomic. Vertebral body heights are preserved. No acute fracture. Mild cervical spondylosis various degrees mild disc space narrowing. Odontoid intact. The lateral masses C1-C2 aligned and occipital condyle is maintained. Posterior elements intact and normal alignment. Calcification carotid bifurcations. Subpleural fibrosis left lung apex. Advanced degenerative changes bilateral temporomandibular joints. IMPRESSION: 1. Negative for acute fracture or traumatic subluxation cervical spine. Initial report was provided by [facility]. Dictated by: Dictated on workstation # [id number]
--- NOTE | 2022-12-30 08:41 | Diagnostic Imaging Report ---
PROCEDURE: CT thoracic spine without contrast. TECHNIQUE: Multiple axial computerized tomography images were obtained from the base of the thoracic spine to the vertex without intravenous contrast. Auto Exposure Controls were utilized during the CT exam to meet ALARA standards for radiation dose reduction. INDICATION: Pain and soreness post fall CORRELATION STUDY: MRI thoracic spine 06/06/2021 FINDINGS: Marked compression deformity at T7, nonacute and unchanged. There is loss of approximately 80% vertebral body height. No retropulsion. There is also moderate compression fracture at T4 particularly at the inferior endplate. Also appears unchanged. Minimal 4 mm retropulsion is a present into the canal, stable. There is no acute appearing compression deformity. There is accentuated kyphosis centered at the T7 level. Alignment otherwise anatomic. Vacuum disc phenomena multiple levels is present. The posterior elements are intact and normal alignment. Generalized bony demineralization present. There is atherosclerotic vascular calcification. Question perhaps mild edema in the lung miguel. No awilda infiltrate. Partially visualized heart is enlarged. IMPRESSION: 1. No acute fracture or traumatic subluxation thoracic spine. Unchanged marked compression fracture T7 to lesser degree T4. Initial report was provided by [facility]. Dictated by: Dictated on workstation # [id number]
== END 2022-12-30 00:30 | disposition home or self-care (01) ==
LOC: EDUNIT# 22:05 → ER 22:06
DX: M54.2 Cervicalgia (principal); R07.89 Other chest pain; M54.6 Pain in thoracic spine; M25.512 Pain in left shoulder; Z79.82 Long term (current) use of aspirin; W01.10XA Fall on same level from slipping, tripping and stumbling with subsequent striking against unspecified object, initial encounter; Y92.009 Unspecified place in unspecified non-institutional (private) residence as the place of occurrence of the external cause
CPT/HCPCS: 71045; 72125; 72128

== ENCOUNTER 2023-02-04 14:46 | Outpatient (RCR) | payer MEDICARE, OTHER | END 2023-02-05 | PROVIDERS: ATTEND Family Medicine | DX: R29.6 Repeated falls (principal); R26.81 Unsteadiness on feet; K21.9 Gastro-esophageal reflux disease without esophagitis; E11.9 Type 2 diabetes mellitus without complications; I10 Essential (primary) hypertension ==